=== PATIENT | female | born 1965 | race Caucasian/White ===

== ENCOUNTER 2021-09-05 17:15 | Emergency (ER) | payer OTHER ==
[2021-09-05] MEDS ORDERED: Lidocaine 2% 30 ML, Alum Hydrox/Mag Hydrox/Simeth 30 ML, diphenhydrAMINE 75 MG PO PRN ×3 (18:01)
[2021-09-05] MEDS ORDERED: Aluminum Hydroxide/Magnesium Hydroxide/Simethicone Susp 30 ML Cup ONE (18:36)
[2021-09-05] MEDS: diphenhydrAMINE 25 MG/10 ML Cup ONE (18:45)
[2021-09-05] MEDS: Lidocaine 2% Viscous Solution 15 ML UD ONE ×2 (18:45→19:00)
== END 2021-09-05 18:55 | disposition home or self-care (01) ==
LOC: JP.ED 17:15
DX: J02.9 Acute pharyngitis, unspecified (principal); Z72.0 Tobacco use
CPT/HCPCS: 99282; A9270-GY